=== PATIENT | male | born 1995 | race Caucasian/White ===

== ENCOUNTER 2017-01-25 16:35 | Emergency (ER) | payer OTHER ==
[~2017-01-25] VITALS: Ht 182.9 cm; Wt 115.0 kg
[~2017-01-25 16:35] MED LIST: ONDA4; PANT20 PO; PROT40TA PO
[2017-01-25 16:41] VITALS: BP 140/89; PULSE 108; RESP 15; TEMP 98.2; O2SAT 98
--- NOTE | 2017-01-25 16:53 | PD ---
HPI . Hand injury Chief Complaint: Injury Time Seen by Provider: 16:48 Travel History International Travel<30 days: No Contact w/Intl Traveler<30days: No Traveled to known affect area: No History of Present Illness HPI This patient presents with chief complaint of left hand injury. He states that he punched a wall about 30 minutes prior to arrival. He states this pain is very mild. Pain is exacerbated by movement. No other associated injuries. PFSH Past Medical History Medical History: Denies Significant Hx ADHD: No Asthma: Yes (NOT IN YEARS) Cancer: No Cardiovascular Problems: No Diabetes: No Diminished Hearing: No Gastrointestinal Disorders: Yes (IBS; "ABD ISSUES") Psychiatric: Yes (ANGER AGRESSION; ADHD) Immunizations Current: Yes Migraines: No Seizures: No Thyroid Disease: No Ulcer: No Tetanus Vaccination: > 5 Years Influenza Vaccination: No ?: Not Past Surgical History Surgical History: No Previous Surgery Other Surgery: No Social History Alcohol Use: No Tobacco Use: Yes (1/2) Substance Use: No Allergies-Medications (Allergen,Severity, Reaction): Coded Allergies: Amoxicillin (Verified Allergy, Severe, RASH, 01/25/17) Reported Meds & Prescriptions Reported Meds & Active Scripts Active Review of Systems Except as stated in HPI: all other systems reviewed are Neg Musculoskeletal: Positive: Myalgias Physical Exam Narrative GENERAL: Awake and alert and in no acute distress. SKIN: Warm and dry. HEAD: Atraumatic. Normocephalic. EYES: Pupils equal and round. NECK: Trachea midline. CARDIOVASCULAR: Regular rate and rhythm. RESPIRATORY: No accessory muscle use. MUSCULOSKELETAL: Swelling of the left hand in the area of the fourth and fifth metacarpals. There is no gross deformity. His fingers line up normally. He is distally neurovascularly intact. NEUROLOGICAL: Awake and alert. No obvious cranial nerve deficits. Motor grossly within normal limits. Normal speech. PSYCHIATRIC: Appropriate mood and affect; insight and judgment normal. Data Data Last Documented VS Vital Signs Date Time Temp Pulse Resp B/P Pulse Ox O2 Delivery O2 Flow Rate FiO2 01/25/17 16:41 98.2 108 15 140/89 98 Orders Hand, Complete ([id number]) (01/25/17 16:50) Ibuprofen (Motrin) (01/25/17 17:00) Splint Or Brace Apply/Monitor (01/25/17 17:17) [facility] Medical Decision Making Medical Screen Exam Complete: Yes Emergency Medical Condition: Yes Differential Diagnosis Differential diagnosis of extremity trauma includes but is not limited to fracture, sprain or strain, dislocation, contusion Narrative Course This patient presents with chief complaint of left hand injury. X-rays pending. X-ray shows a midshaft fracture of the left fifth metacarpal. Minimal angulation. The x-ray was independently viewed by me. Patient will be treated with normal gutter splint. He will be referred to orthopedics for follow-up. He will be given a prescription for [place] for pain. He will be instructed to keep the hand iced and elevated as much as possible. Diagnosis Primary Impression: Hand fracture, left Qualified Code: S62.92XA - Hand fracture, left, closed, initial encounter Referrals: Sal Glass MD 3 days Patient Instructions: Boxer Fracture (ED), General Instructions Med/Other Pt SpecificInfo: Prescription(s) given Scripts Hydrocodone-Acetaminophen ([place])5-325 mg Tab1 Tab PO Q4H PRN (PAIN) #30 TAB Ref 0 Prov:Brissa Lopez MD 01/25/17 Disposition: 01 DISCHARGE HOME Condition: Stable Brissa Lopez MD Jan 25, 2017 16:53
[2017-01-25] MEDS ORDERED: IBUPROFEN 800 MG TAB PO ONE (17:00)
--- NOTE | 2017-01-25 17:20 | RADRPT ---
EXAM DATE/TIME: 01/25/2017 16:52 [facility] COMPARISON: No previous studies available for comparison. INDICATIONS : Left medial hand pain status post blunt impact. MEDICAL HISTORY : None. SURGICAL HISTORY : None. ENCOUNTER: Initial ACUITY: 1 day PAIN SCORE: 4/10 LOCATION: Left hand. FINDINGS: There is a complete fracture of fifth metacarpal bone with slight angulation. CONCLUSION: Fifth metacarpal fracture. Lennie Brito MD on January 25, 2017 at 17:18 Board Certified Radiologist. This report was verified electronically.
[2017-01-25] MEDS ORDERED: NORC5TAB PO (17:22)
[2017-01-25] MEDS ORDERED: ADDE30TA PO (21:12)
[2017-01-25] MEDS ORDERED: ZOFR4TAB3 SL (22:41)
== END 2017-01-25 17:51 | disposition home or self-care (01) ==
LOC: PHEFT 16:35
DX: S62.92XA Unspecified fracture of left hand, initial encounter for closed fracture (principal); W22.01XA Walked into wall, initial encounter
CPT/HCPCS: 29125; 73130

== ENCOUNTER 2017-01-25 20:31 | Emergency (ER) | payer OTHER ==
[~2017-01-25 20:31] MED LIST changes: +NORC5TAB PO
[2017-01-25 20:32] VITALS: BP 179/101; PULSE 58; RESP 20
[2017-01-25] MEDS ORDERED: SODIUM CHLOR 0.9% 1000 ML INJ 1,000 ML IV SCH (20:44)
[2017-01-25] MEDS ORDERED: SODIUM CHLORIDE 0.9% FLUSH 10 ML FLUSH IV FLUSH PRN (20:45)
[2017-01-25] MEDS ORDERED: HYDROmorphone HCL PF 1 MG/ML VIAL IVS ONE (20:45)
[2017-01-25] MEDS ORDERED: ONDANSETRON HCL 4 MG/2 ML VIAL IVP ONE (20:45)
--- NOTE | 2017-01-25 20:57 | PD ---
HPI Chief Complaint: GI Complaint Time Seen by Provider: 20:44 Travel History International Travel<30 days: No Contact w/Intl Traveler<30days: No History of Present Illness HPI This is a 21-year-old male who presents to the emergency department with epigastric abdominal discomfort that started 4 hours ago, constant, severe, associated with multiple episodes of vomiting. He says he's had some loose stools but he only had 1 stool today. He denies any fevers or chills. He says this is happened to him before and they never figured out what it was. He supposed to get an endoscopy performed but was unable to get this done. PFSH Past Medical History Asthma: Yes (NOT IN YEARS) Diminished Hearing: No Gastrointestinal Disorders: Yes (IBS; "ABD ISSUES") Psychiatric: Yes (ANGER AGRESSION; ADHD) Immunizations Current: Yes Migraines: No Social History Alcohol Use: No Tobacco Use: Yes (1/2) Substance Use: No Allergies-Medications (Allergen,Severity, Reaction): Coded Allergies: Amoxicillin (Verified Allergy, Severe, RASH, 01/25/17) Reported Meds & Prescriptions Reported Meds & Active Scripts Active Reported Adderall (Amphetamine-Dextroamphetamine) 30 Mg Tab 30 Mg PO DAILY Avoid late evening doses. Space doses at least 4 to 6 hours if more than once/day dosing. Review of Systems Except as stated in HPI: all other systems reviewed are Neg Physical Exam Narrative GENERAL: Diaphoretic, uncomfortable appearing SKIN: Focused skin assessment warm and dry. HEAD: Atraumatic. Normocephalic. EYES: Pupils equal and round. No injection or drainage. ENT: Moist mucous membranes NECK: Trachea midline. CARDIOVASCULAR: Regular rate and rhythm. No murmur appreciated. RESPIRATORY: Clear to auscultation. Breath sounds equal bilaterally. GASTROINTESTINAL: tender to palpation in the right upper quadrant and epigastrium with no rebound/guarding. MUSCULOSKELETAL: No obvious deformities. NEUROLOGICAL: Awake and alert. No obvious cranial nerve deficits. Moving all extremities. PSYCHIATRIC: Antagonistic with staff, threatening to leave prior to evaluation and uncooperative with questioning Data Data Last Documented VS Vital Signs Date Time Temp Pulse Resp B/P Pulse Ox O2 Delivery O2 Flow Rate FiO2 01/25/17 21:20 62 20 195/94 100 Room Air 01/25/17 21:06 97.2 Orders Complete Blood Count With Diff (01/25/17 20:44) Comprehensive Metabolic Panel (01/25/17 20:44) Lipase (01/25/17 20:44) Us Abdomen Gallbladder (01/25/17 ) Iv Access Insert/Monitor (01/25/17 20:44) Ecg Monitoring (01/25/17 20:44) Oximetry (01/25/17 20:44) Ondansetron Inj (Zofran Inj) (01/25/17 20:45) Sodium Chlor 0.9% 1000 Ml Inj (Ns 1000 M (01/25/17 20:44) Sodium Chloride 0.9% Flush (Ns Flush) (01/25/17 20:45) Hydromorphone Pf Inj (Dilaudid Pf Inj) (01/25/17 20:45) Prochlorperazine Inj (Compazine Inj) (01/25/17 22:15) Labs Laboratory Tests Test 01/25/17 20:55 White Blood Count 15.6 TH/MM3 Red Blood Count 5.43 MIL/MM3 Hemoglobin 15.8 GM/DL Hematocrit 48.7 % Mean Corpuscular Volume 89.6 FL Mean Corpuscular Hemoglobin 29.1 PG Mean Corpuscular Hemoglobin 32.5 % Concent Red Cell Distribution Width 12.6 % Platelet Count 332 TH/MM3 Mean Platelet Volume 9.8 FL Neutrophils (%) (Auto) 78.8 % Lymphocytes (%) (Auto) 10.4 % Monocytes (%) (Auto) 6.3 % Eosinophils (%) (Auto) 3.9 % Basophils (%) (Auto) 0.6 % Neutrophils # (Auto) 12.3 TH/MM3 Lymphocytes # (Auto) 1.6 TH/MM3 Monocytes # (Auto) 1.0 TH/MM3 Eosinophils # (Auto) 0.6 TH/MM3 Basophils # (Auto) 0.1 TH/MM3 CBC Comment DIFF FINAL Differential Comment Sodium Level 142 MEQ/L Potassium Level 3.6 MEQ/L Chloride Level 108 MEQ/L Carbon Dioxide Level 22.2 MEQ/L Anion Gap 12 MEQ/L Blood Urea Nitrogen 14 MG/DL Creatinine 1.20 MG/DL Estimat Glomerular Filtration 78 ML/MIN Rate Random Glucose 101 MG/DL Calcium Level 10.1 MG/DL Total Bilirubin 1.9 MG/DL Aspartate Amino Transf 25 U/L (AST/SGOT) Alanine Aminotransferase 32 U/L (ALT/SGPT) Alkaline Phosphatase 89 U/L Total Protein 8.1 GM/DL Albumin 4.7 GM/DL Lipase 128 U/L MDM Medical Decision Making Medical Screen Exam Complete: Yes Emergency Medical Condition: Yes Interpretation(s) afebrile, no tachycardia, hypertensive mild leukocytosis 78% neutrophils electrolytes within normal limits Last 24 hours Impressions Gall Bladder Ultrasound 01/25/17 0000 Signed Impressions: Service Date/Time: Wednesday, January 25, 2017 20:51 - CONCLUSION: Unremarkable study. Lennie Brito MD Differential Diagnosis gastritis, peptic ulcer disease, pancreatitis, cyclic vomiting syndrome, gastroparesis, cannabis hyperemesis syndrome Narrative Course This is a 21-year-old male who presents to the emergency department with vomiting and epigastric discomfort. He's had symptoms like this before. He's had 2 CT scans in the past 2 years which have been reassuring in the setting of similar symptoms. Here he was placed on a monitor and an IV was established. Labs are obtained which demonstrated a mild leukocytosis which I suspect is a stress response in the setting of vomiting. He also has a total bilirubin of 1.9. A right upper quadrant ultrasound was obtained which was reassuring. Patient does acknowledge smoking marijuana fairly frequently. I suspect that this is cannabis hyperemesis syndrome. I discussed this with the patient and counseled him to decrease his marijuana use. I think the risks of further imaging outweigh the benefits as the patient is quite young. He feels better after antiemetics and IV fluids. I did offer her more antiemetics that he pulled out his IV. He was pretty antagonistic throughout his ER stay which may be due to some underlying personality disorder. Patient will be discharged. Diagnosis Primary Impression: Cannabinoid hyperemesis syndrome Patient Instructions: General Instructions Additional Instructions: Stop using marijuana as I think it's making your symptoms worse. If you develop severe or worsening abdominal pain, fever>100.4, persistent vomiting or inability to eat or drink return to the emergency department immediately. Follow up with your primary care physician in 1-2 days for a check-up. Med/Other Pt SpecificInfo: Prescription(s) given Scripts Ondansetron Odt (Zofran Odt)4 Mg Tab4 Mg SL Q6HR PRN (Nausea/Vomiting) #15 TAB Prov:Highet,Marissa H. MD 01/25/17 Disposition: 01 DISCHARGE HOME Condition: Stable Marissa Hu MD Jan 25, 2017 20:57
[2017-01-25 21:02] LABS: AUTOMATED NEUTROPHIL # 12.3 TH/MM3 (1.8-7.7); BASOPHIL # 0.1 TH/MM3 (0-0.2); BASOPHIL % 0.6 % (0.0-2.0); EOSINOPHIL # 0.6 TH/MM3 (0-0.4); EOSINOPHIL % 3.9 % (0.0-4.0); HEMATOCRIT 48.7 % (39.0-51.0); LYMPH % 10.4 % (9.0-44.0); LYMPHOCYTE # 1.6 TH/MM3 (1.0-4.8); MEAN CELL VOLUME 89.6 FL (80.0-100.0); MEAN CORPUSCULAR HEMOGLOBIN 29.1 PG (27.0-34.0); MEAN CORPUSCULAR HGB CONC 32.5 % (32.0-36.0); MONO % 6.3 % (0.0-8.0); NEUT % 78.8 % (16.0-70.0); PLATELET COUNT 332 TH/MM3 (150-450); RED BLOOD COUNT 5.43 MIL/MM3 (4.50-5.90); RED CELL DISTRIBUTION WIDTH 12.6 % (11.6-17.2); WHITE BLOOD COUNT 15.6 TH/MM3 (4.0-11.0)
[2017-01-25 21:06] VITALS: BP 198/92; PULSE 58; RESP 20; TEMP 97.2; O2SAT 100
[2017-01-25 21:09] LABS: HEMO FLAGS DIFF FINAL
[2017-01-25 21:12] LABS: CHLORIDE 108 MEQ/L (98-107); POTASSIUM 3.6 MEQ/L (3.5-5.1); SODIUM (NA) 142 MEQ/L (136-145)
[2017-01-25] MEDS ORDERED: ADDE30TA PO (21:12)
[2017-01-25 21:16] LABS: ANION GAP 12 MEQ/L (5-15); BICARBONATE 22.2 MEQ/L (21.0-32.0); BLOOD UREA NITROGEN 14 MG/DL (7-18)
[2017-01-25 21:19] LABS: ALT (GPT) 32 U/L (9-52); AST (GOT) 25 U/L (15-39); GLOMERULAR FILTRATION RATE 78 ML/MIN (>89)
[2017-01-25 21:20] VITALS: BP 195/94; PULSE 62; RESP 20; O2SAT 100
[2017-01-25 21:20] LABS: TOTAL BILIRUBIN ADULT 1.9 MG/DL (0.2-1.0)
[2017-01-25 21:22] LABS: ALKALINE PHOSPHATASE 89 U/L (45-117)
--- NOTE | 2017-01-25 21:24 | RADRPT ---
EXAM DATE/TIME: 01/25/2017 20:51 [facility] COMPARISON: No previous studies available for comparison. INDICATIONS : Nausea and vomiting, right upper quadrant pain. MEDICAL HISTORY : Nausea and vomiting, right upper quadrant pain. SURGICAL HISTORY : None. ENCOUNTER: Initial ACUITY: 1 day PAIN SCORE: 8/10 LOCATION: Right upper quadrant MEASUREMENTS: LIVER: 14.3 cm length COMMON DUCT: 3 mm RIGHT KIDNEY: 11.4 x 5.5 x 6.9 cm FINDINGS: The gallbladder is intact without any evidence for gallstones, gallbladder wall thickening, or perich olecystic fluid. The visualized liver, head of the pancreas, and right kidney appear grossly intact for technique. CONCLUSION: Unremarkable study. Lennie Brito MD on January 25, 2017 at 21:21 Board Certified Radiologist. This report was verified electronically.
[2017-01-25] MEDS ORDERED: PROCHLORPERAZINE INJ 10 MG/2 ML VIAL IV PUSH ONE (22:15)
[2017-01-25] MEDS ORDERED: ZOFR4TAB3 SL (22:41)
== END 2017-01-25 22:56 | disposition home or self-care (01) ==
LOC: PHED 20:31
DX: R11.10 Vomiting, unspecified (principal); T40.7X5A Adverse effect of cannabis (derivatives), initial encounter
CPT/HCPCS: 76705; 80053; 83690; 85025; 96374; 96375; 99285; J1170; J2405; J7030

== ENCOUNTER 2017-06-22 13:57 | Emergency (ER) | payer OTHER ==
[~2017-06-22] VITALS: Ht 182.9 cm; Wt 120.0 kg
[~2017-06-22 13:57] MED LIST changes: +ADDE30TA PO; -NORC5TAB PO; -ONDA4; -PANT20 PO; -PROT40TA PO; +ZOFR4TAB3 SL
[2017-06-22 14:00] VITALS: BP_SYST 182; BP_SYST 183; BP_DIAS 121; BP_DIAS 135; PULSE 86; RESP 14; TEMP 98.4; O2SAT 97
[2017-06-22] MEDS ORDERED: SODIUM CHLOR 0.9% 1000 ML INJ 1,000 ML IV SCH (14:22)
[2017-06-22 14:28] VITALS: BP 181/112; PULSE 72; RESP 18; O2SAT 100
[2017-06-22] MEDS ORDERED: LIDOCAINE VISCOUS 2% SOLN 15 ML UDC PO ONE (14:30)
[2017-06-22] MEDS ORDERED: PANTOPRAZOLE SODIUM 40 MG VIAL IVP ONE (14:30)
[2017-06-22] MEDS ORDERED: ALUMINUM/MAGNESIUM/SIMETH 30 ML CUP PO ONE (14:30)
[2017-06-22] MEDS ORDERED: HALOPERIDOL LACTATE 5 MG/ML AMP IM ONE (14:30)
[2017-06-22] MEDS ORDERED: SODIUM CHLORIDE 0.9% FLUSH 10 ML FLUSH IV FLUSH PRN (14:30)
[2017-06-22] MEDS ORDERED: DICYCLOMINE HCL 20 MG/2 ML VIAL IM ONE (14:30)
[2017-06-22] MEDS ORDERED: PROCHLORPERAZINE INJ 10 MG/2 ML VIAL IV PUSH ONE (14:30)
[2017-06-22 15:22] VITALS: BP 148/77; PULSE 60; RESP 18; O2SAT 100
[2017-06-22 16:03] LABS: AUTOMATED NEUTROPHIL # 12.4 TH/MM3 (1.8-7.7); BASOPHIL # 0.1 TH/MM3 (0-0.2); BASOPHIL % 0.4 % (0.0-2.0); EOSINOPHIL # 0.1 TH/MM3 (0-0.4); HEMATOCRIT 51.4 % (39.0-51.0); HEMO FLAGS DIFF FINAL; LYMPH % 5.5 % (9.0-44.0); LYMPHOCYTE # 0.8 TH/MM3 (1.0-4.8); MEAN CELL VOLUME 89.8 FL (80.0-100.0); MEAN CORPUSCULAR HEMOGLOBIN 31.3 PG (27.0-34.0); MEAN CORPUSCULAR HGB CONC 34.9 % (32.0-36.0); NEUT % 87.1 % (16.0-70.0); PLATELET COUNT 350 TH/MM3 (150-450); RED BLOOD COUNT 5.73 MIL/MM3 (4.50-5.90); WHITE BLOOD COUNT 14.3 TH/MM3 (4.0-11.0)
[2017-06-22 16:28] LABS: ANION GAP 9 MEQ/L (5-15); AST (GOT) 12 U/L (15-39); BICARBONATE 25.6 MEQ/L (21.0-32.0); BLOOD UREA NITROGEN 9 MG/DL (7-18); CHLORIDE 100 MEQ/L (98-107); GLOMERULAR FILTRATION RATE 93 ML/MIN (>89); POTASSIUM 3.7 MEQ/L (3.5-5.1); SODIUM (NA) 135 MEQ/L (136-145)
[2017-06-22 16:31] LABS: ALKALINE PHOSPHATASE 74 U/L (45-117); ALT (GPT) 24 U/L (9-52); TOTAL BILIRUBIN ADULT 1.3 MG/DL (0.2-1.0)
[2017-06-22] MEDS ORDERED: PROM25TA10 PO (17:05)
--- NOTE | 2017-06-22 17:05 | PD ---
HPI Chief Complaint: GI Complaint Time Seen by Provider: 14:19 Travel History International Travel<30 days: No Contact w/Intl Traveler<30days: No Traveled to known affect area: No History of Present Illness HPI 22-year-old male reports continued nausea vomiting last 4 days. He has had similar episodes previously. he denies diarrhea. He denies fever. Oral hydration has been decreased. He notes that attempts to eat healthier foods seem to have helped somewhat. He describes a generalized abdominal pain. This feels similar prior episodes. He reports stopping marijuana smoking in an attempt to help mitigate symptom severity. PFSH Past Medical History ADHD: Yes Asthma: Yes ( A CHILD) Anxiety: Yes Depression: Yes Cancer: No Cardiovascular Problems: No Diabetes: No Diminished Hearing: No Gastrointestinal Disorders: Yes (IBS) Psychiatric: Yes (ANGER, AGRESSION,MCINTYRE ACT,DEPRESSION,ANXIETY) Immunizations Current: Yes Migraines: No Seizures: No Thyroid Disease: No Ulcer: No Past Surgical History Other Surgery: No Social History Alcohol Use: No Tobacco Use: Yes (1/2 PPD) Substance Use: Yes (MARIJUANA-SMOKED JUST PRIOR TO ARRIVAL 01/25/17) Allergies-Medications (Allergen,Severity, Reaction): Coded Allergies: amoxicillin (Unverified Allergy, Severe, RASH, 06/22/17) Reported Meds & Prescriptions Reported Meds & Active Scripts Active Phenergan (Promethazine HCl) 25 Mg Tablet 25 Mg PO Q6H PRN Zofran Odt (Ondansetron Odt) 4 Mg Tab 4 Mg SL Q6HR PRN Reported Adderall (Amphetamine-Dextroamphetamine) 30 Mg Tab 30 Mg PO DAILY Avoid late evening doses. Space doses at least 4 to 6 hours if more than once/day dosing. Review of Systems Except as stated in HPI: all other systems reviewed are Neg Physical Exam Narrative GENERAL: 22-year-old male pleasant well-nourished well-developed no acute distress SKIN: Focused skin assessment warm/dry. HEAD: Atraumatic. Normocephalic. EYES: Pupils equal and round. No scleral icterus. No injection or drainage. ENT: No nasal bleeding or discharge. Mucous membranes pink and moist. NECK: Trachea midline. No JVD. CARDIOVASCULAR: Regular rate and rhythm. No murmur appreciated. RESPIRATORY: No accessory muscle use. Clear to auscultation. Breath sounds equal bilaterally. GASTROINTESTINAL: No focus of tenderness. Abdomen soft. MUSCULOSKELETAL: No obvious deformities. No clubbing. No cyanosis. No edema. NEUROLOGICAL: Awake and alert. No obvious cranial nerve deficits. Motor grossly within normal limits. Normal speech. PSYCHIATRIC: Appropriate mood and affect; insight and judgment normal. Data Data Last Documented VS Vital Signs Date Time Temp Pulse Resp B/P (MAP) Pulse Ox O2 Delivery O2 Flow Rate FiO2 06/22/17 17:37 82 18 162/82 (108) 98 06/22/17 15:22 Room Air 06/22/17 14:00 98.4 Vital signs reviewed Orders Orders Complete Blood Count With Diff (06/22/17 14:22) Comprehensive Metabolic Panel (06/22/17:22) Lipase (06/22/17 14:22) Iv Access Insert/Monitor (06/22/17 14:22) Ecg Monitoring (06/22/17 14:22) Oximetry (06/22/17 14:22) Pantoprazole Inj (Protonix Inj) (06/22/17 14:30) Sodium Chlor 0.9% 1000 Ml Inj (Ns 1000 M (06/22/17 14:22) Sodium Chloride 0.9% Flush (Ns Flush) (06/22/17 14:30) Dicyclomine Inj (Bentyl Inj) (06/22/17 14:30) Al-Mag Hy-Si 40-40-4 Mg/Ml Liq (Mag-Al P (06/22/17 14:30) Lidocaine 2% Viscous (Xylocaine 2% Visco (06/22/17 14:30) Prochlorperazine Inj (Compazine Inj) (06/22/17 14:30) Haloperidol Inj (Haldol Inj) (06/22/17 14:30) Ed Discharge Order (06/22/17 17:07) Labs Laboratory Tests Test 06/22/17 15:00 White Blood Count 14.3 TH/MM3 Red Blood Count 5.73 MIL/MM3 Hemoglobin 18.0 GM/DL Hematocrit 51.4 % Mean Corpuscular Volume 89.8 FL Mean Corpuscular Hemoglobin 31.3 PG Mean Corpuscular Hemoglobin Concent 34.9 % Red Cell Distribution Width 13.0 % Platelet Count 350 TH/MM3 Mean Platelet Volume 9.1 FL Neutrophils (%) (Auto) 87.1 % Lymphocytes (%) (Auto) 5.5 % Monocytes (%) (Auto) 6.0 % Eosinophils (%) (Auto) 1.0 % Basophils (%) (Auto) 0.4 % Neutrophils # (Auto) 12.4 TH/MM3 Lymphocytes # (Auto) 0.8 TH/MM3 Monocytes # (Auto) 0.9 TH/MM3 Eosinophils # (Auto) 0.1 TH/MM3 Basophils # (Auto) 0.1 TH/MM3 CBC Comment DIFF FINAL Differential Comment Blood Urea Nitrogen 9 MG/DL Creatinine 1.02 MG/DL Random Glucose 106 MG/DL Total Protein 8.1 GM/DL Albumin 4.6 GM/DL Calcium Level 9.6 MG/DL Alkaline Phosphatase 74 U/L Aspartate Amino Transf (AST/SGOT) 12 U/L Alanine Aminotransferase (ALT/SGPT) 24 U/L Total Bilirubin 1.3 MG/DL Sodium Level 135 MEQ/L Potassium Level 3.7 MEQ/L Chloride Level 100 MEQ/L Carbon Dioxide Level 25.6 MEQ/L Anion Gap 9 MEQ/L Estimat Glomerular Filtration Rate 93 ML/MIN Lipase 149 U/L MDM Medical Decision Making Medical Screen Exam Complete: Yes Emergency Medical Condition: Yes Medical Record Reviewed: Yes Differential Diagnosis Constipation, Gastritis, Acute Cholecystitis, Biliary Colic, Pancreatitis, ROCA , Hepatitis, Bowel Obstruction, Cystitis, Mesenteric Ischemia, AAA, Appendicitis , Renal Stone/Hydronephrosis, GERD, perforated viscous Narrative Course CBC & BMP Diagram 06/22/17 15:00 Total Protein 8.1, Albumin 4.6, Calcium Level 9.6, Alkaline Phosphatase 74, Aspartate Amino Transf (AST/SGOT) 12 L, Alanine Aminotransferase (ALT/SGPT) 24, Total Bilirubin 1.3 H Patient received IV fluids Compazine Benadryl Haldol and a GI cocktail. No vomiting during the ER stay was observed. The blood work is consistent with frequent vomiting however within normal limits and the patient be discharged home with strict return precautions which were endorsed at bedside. The patient verbalized understanding. He is ready for discharge. Diagnosis Primary Impression: Nausea & vomiting Qualified Codes: R11.2 - Nausea with vomiting, unspecified Med/Other Pt SpecificInfo: Prescription(s) given Scripts Promethazine (Phenergan) 25 Mg Tablet 25 MG PO Q6H Y for NAUSEA OR VOMITING, #15 TAB 0 Refills Prov: Mahesh Overton MD 06/22/17 Disposition: 01 DISCHARGE HOME Condition: Stable Mahesh Overton MD Jun 22, 2017 17:05
[2017-06-22 17:37] VITALS: BP 162/82
== END 2017-06-22 18:17 | disposition home or self-care (01) ==
LOC: NEPC 13:57
DX: R11.2 Nausea with vomiting, unspecified (principal); R10.84 Generalized abdominal pain; F90.9 Attention-deficit hyperactivity disorder, unspecified type; J45.909 Unspecified asthma, uncomplicated; F41.9 Anxiety disorder, unspecified; F32.9 Major depressive disorder, single episode, unspecified; F17.200 Nicotine dependence, unspecified, uncomplicated; Z79.899 Other long term (current) drug therapy; Z87.19 Personal history of other diseases of the digestive system
CPT/HCPCS: 80053; 83690; 85025; 96361; 96372; 96374; 96375; 99285; C9113; J0500; J0780; J1630; J7030